=== PATIENT | male | born 1995 ===

== ENCOUNTER 2017-08-17 22:53 | Emergency (ER) | payer MEDICAID ==
--- NOTE | 2017-08-17 23:00 | EDPHY ---
H & P Stated Complaint: Medical clearance for alf Time Seen by Provider: 08/17/17 22:59 HPI/ROS: HPI: The patient presents with medical clearance for alf. He was found at a bar heavily intoxicated after drinking multiple shots of whiskey in quick succession. He was arrested by the police because of his behavior. He had to be taken down. He presents now for evaluation. He is very intoxicated though denies any complaints. There is no report of head trauma. REVIEW OF SYSTEMS Constitutional: No fever, no chills. Eyes: No discharge. ENT: No sore throat. Cardiovascular: No chest pain, no palpitations. Respiratory: No cough, no shortness of breath. Gastrointestinal: No abdominal pain, no vomiting. Genitourinary: No hematuria. Musculoskeletal: No back pain. Skin: No rashes. Neurological: No headache. PMHx: Healthy TRAUMA PHYSICAL General Appearance: Alert, yelling, spit mask in place, in 4 point restraints Head: Atraumatic Eyes: Pupils equal, round, reactive ENT, Mouth: no oral trauma Neck: Non- tender, trachea midline Respiratory: No chest wall tenderness, no subcutaneous air, lungs clear bilaterallty Cardiovascular: Regular rate and rhythm Abdomen: Abdomen is soft and non-tender, pelvis stable Skin: No lacerations, abrasions to both knees bilaterally with normal range of motion Back: No midline T/L/S pain Extremities: Non-tender, full range of motion Neurological: A&Ox3, GCS=15,normal motor function with 5/5 strength in all 4 extremities Source: Patient, EMS Exam Limitations: Intoxication Constitutional: Initial Vital Signs Temperature (C) 36.6 C 08/17/17 23:02 Heart Rate 66 08/17/17 23:02 Respiratory Rate 16 08/17/17 23:02 Blood Pressure 154/74 H 08/17/17 23:02 O2 Sat (%) 96 08/17/17 23:02 O2 Delivery Mode Room Air Allergies/Adverse Reactions: No Known Allergies Allergy (Unverified 08/17/17 23:01) Home Medications: Medication Instructions Recorded NK [No Known Home Meds] 08/17/17 Medical Decision Making Differential Diagnosis: This is a 22-year-old male who presents for medical clearance for alf. He is intoxicated, brought in by paramedics and police, he was taken down by the police. He is stable for shell abrasions to both of his knees without any difficulty moving them. I suspect he has sustained abrasions only, I doubt any need fracture or dislocation. He will be discharged to alf. Departure - Departure Disposition: Home, Routine, Self-Care Clinical Impression: Medical clearance for incarceration, Abrasion of knee, bilateral, Alcohol intoxication delirium Condition: Good Instructions: Alcohol Intoxication (ED), Abuse of Alcohol (ED) Referrals: [facility] 24 Hours [Outside] - As per Instructions
[2017-08-17 23:07] VITALS: BP 154/74
== END 2017-08-17 23:05 | disposition home or self-care (01) ==
DX: Z02.89 Encounter for other administrative examinations (principal); S80.211A Abrasion, right knee, initial encounter; S80.212A Abrasion, left knee, initial encounter; F10.121 Alcohol abuse with intoxication delirium; X58.XXXA Exposure to other specified factors, initial encounter; Y92.89 Other specified places as the place of occurrence of the external cause; Y99.8 Other external cause status; Y93.89 Activity, other specified